=== PATIENT | male | born 1995 | race African-American/Black ===

== ENCOUNTER 2020-04-17 06:57 | Emergency (ER) | payer MEDICAID ==
[~2020-04-17] VITALS: Ht 185.4 cm; Wt 69.0 kg
[2020-04-17] MEDS ORDERED: IBUPROFEN 800MG TABLET PO ONE (08:15)
[2020-04-17] MEDS ORDERED: CEPHALEXIN 250MG CAPSULE PO ONE (08:15)
[2020-04-17] MEDS ORDERED: TETANUS, DIPHTHERIA, PERTUSSIS VAC/PF 0.5ML (>7YR OLD) IM ONE (08:15)
[2020-04-17 08:54] VITALS: BP 114/70
== END 2020-04-17 10:08 | disposition home or self-care (01) ==
LOC: ER 06:57
DX: S60.221A Contusion of right hand, initial encounter (principal); W22.09XA Striking against other stationary object, initial encounter; Y93.89 Activity, other specified; Y92.9 Unspecified place or not applicable
CPT/HCPCS: 29125; 73130; 90471; 90715; 99283